=== PATIENT | female | born 1940 | race Caucasian/White ===

== ENCOUNTER 2020-10-17 10:12 | Inpatient (IN) | payer MEDICAID ==
[~2020-10-17] VITALS: Ht 152.4 cm; Wt 64.9 kg
[2020-10-17 11:26] LABS: BASOPHILS % 1.1 % (0.0-2.0); EOSINOPHILS % 3.7 % (0.0-5.0); HEMATOCRIT. 34.3 % (36.0-48.0); HEMOGLOBIN. 11.5 g/dL (12.0-16.0); LYMPHOCYTES % 28.3 % (20.0-50.0); MEAN CORPUSCULAR HEMOGLOBIN 31.1 pg (28.0-32.0); MEAN CORPUSCULAR VOLUME 92.8 fL (81.0-99.0); MEAN PLATELET VOLUME 8.1 fl (7.4-10.4); MONOCYTES % 9.5 % (2.0-8.0); NEUTROPHILS % 57.4 % (40.0-76.0); PLATELET 186 x1000/uL (130-400); RED CELL DISTRIBUTION WIDTH 16.3 % (11.6-14.6)
[2020-10-17 11:32] LABS: CHLORIDE 105 mEq/L (98-107)
[2020-10-17] MEDS ORDERED: FUROSEMIDE 40MG/4ML VIAL IVP NR (12:00)
[2020-10-17] MEDS ORDERED: ASPIRIN 81MG TABLET PO NR (12:00)
[2020-10-17] MEDS ORDERED: MAGNESIUM/ALUMINUM HYDROXIDE/SIMETHICONE 30ML UDC PO PRN (13:45)
[2020-10-17] MEDS ORDERED: GUAIFENESIN 200MG/10ML SUGAR FREE UDC PO PRN (13:45)
[2020-10-17] MEDS ORDERED: ONDANSETRON HCL 4MG/2ML INJ IV PRN (13:45)
[2020-10-17] MEDS ORDERED: ACETAMINOPHEN 325MG TABLET PO PRN (13:45)
[2020-10-17] MEDS ORDERED: HYDROMORPHONE HCL/PF 2MG/ML CPJ IV PRN (13:45)
[2020-10-17] MEDS ORDERED: DOCUSATE SODIUM 100MG CAPSULE PO PRN (13:45)
[2020-10-17] MEDS ORDERED: HYDROCODONE/ACETAMINOPHEN 5/325MG TABLET PO PRN (13:45)
[2020-10-17] MEDS ORDERED: LISINOPRIL 10MG TABLET PO SCH (13:45)
[2020-10-17] MEDS: ENOXAPARIN 40MG/0.4ML SYR SUBCUT SCH (16:21)
[2020-10-17 19:30] LABS: CLARITY URINE CLEAR (CLEAR); COLOR URINE YELLOW (YELLOW); KETONES URINE NEGATIVE (NEGATIVE); LEUKOCYTE ESTERASE URINE 1+ (NEGATIVE); NITRITE URINE POSITIVE (NEGATIVE); OCCULT BLOOD URINE TRACE (NEGATIVE); PROTEIN URINE NEGATIVE (NEGATIVE); SPECIFIC GRAVITY URINE 1.007 (1.005-1.030); UROBILINOGEN URINE 0.2 E.U./dL (0.2-1.0)
[2020-10-17 19:42] LABS: METHADONE URINE SCREEN NEGATIVE (NEGATIVE); OPIATES URINE SCREEN NEGATIVE (NEGATIVE); PHENCYCLIDINE URINE SCREEN NEGATIVE (NEGATIVE)
[2020-10-17 19:43] LABS: *AMPHETAMINES SCREEN URINE NEGATIVE (NEGATIVE); *BARBITURATES SCREEN URINE NEGATIVE (NEGATIVE); *BENZODIAZEPINES SCREEN URINE NEGATIVE (NEGATIVE); *COCAINE SCREEN URINE NEGATIVE (NEGATIVE); CANNABINOID URINE SCREEN NEGATIVE (NEGATIVE)
[2020-10-17 21:30] VITALS: BP 151/74
[2020-10-17] MEDS: HYDRALAZINE HCL 25MG TABLET PO SCH (22:42)
[2020-10-18] VITALS: BP 130/88
[2020-10-18 04:00] VITALS: BP 129/80
[2020-10-18 06:12] LABS: CHLORIDE 102 mEq/L (98-107)
[2020-10-18 06:23] LABS: LDL CHOLESTEROL 110 mg/dL (5-100)
[2020-10-18 06:25] LABS: HDL CHOLESTEROL 43 mg/dL (40-59); T4 FREE 1.46 ng/dL (0.76-1.46)
[2020-10-18 08:00] VITALS: BP 121/47
[2020-10-18 08:24] LABS: BASOPHILS % 1.2 % (0.0-2.0); EOSINOPHILS % 2.6 % (0.0-5.0); HEMATOCRIT. 39.7 % (36.0-48.0); HEMOGLOBIN. 13.5 g/dL (12.0-16.0); LYMPHOCYTES % 22.2 % (20.0-50.0); MEAN CORPUSCULAR HEMOGLOBIN 31.6 pg (28.0-32.0); MEAN CORPUSCULAR VOLUME 92.6 fL (81.0-99.0); MEAN PLATELET VOLUME 9.6 fl (7.4-10.4); MONOCYTES % 9.2 % (2.0-8.0); NEUTROPHILS % 64.8 % (40.0-76.0); PLATELET 191 x1000/uL (130-400); RED BLOOD CELL COUNT 4.28 mill/uL (4.2-5.4); RED CELL DISTRIBUTION WIDTH 16.1 % (11.6-14.6)
[2020-10-18] MEDS: ASPIRIN 81MG EC TABLET PO SCH (08:49)
[2020-10-18] MEDS: FUROSEMIDE 40MG/4ML VIAL IVP SCH (08:49)
[2020-10-18] MEDS ORDERED: LEVOFLOXACIN 500MG PREMIX 100 ML IV NR (11:00)
[2020-10-18 12:00] VITALS: BP 159/68
[2020-10-18] MEDS: HYDRALAZINE HCL 25MG TABLET PO SCH ×2 (13:45→21:12)
[2020-10-18] MEDS: ENOXAPARIN 40MG/0.4ML SYR SUBCUT SCH (15:54)
[2020-10-18 16:00] VITALS: BP 149/74
[2020-10-18] MEDS ORDERED: SULF500T4 PO (16:23)
[2020-10-18] MEDS ORDERED: CALC-3 MT (16:23)
[2020-10-18] MEDS ORDERED: MEMA5TAB42 MT (16:23)
[2020-10-18] MEDS ORDERED: AMLO10TA80 PO (16:23)
[2020-10-18] MEDS ORDERED: LABE100T5 MT (16:23)
[2020-10-18] MEDS ORDERED: ASPI-1497 MT (16:23)
[2020-10-18] MEDS ORDERED: DONE10TA36 PO (16:24)
[2020-10-18 20:00] VITALS: BP 97/59
[2020-10-18] MEDS: ATORVASTATIN CALCIUM 20MG TABLET PO SCH (21:12)
[2020-10-19] VITALS: BP 179/83
[2020-10-19] MEDS: HYDRALAZINE HCL 25MG TABLET PO SCH ×3 (05:04→21:17)
[2020-10-19 08:00] VITALS: BP 156/86
[2020-10-19] MEDS: FUROSEMIDE 40MG/4ML VIAL IVP SCH (08:28)
[2020-10-19] MEDS: ASPIRIN 81MG EC TABLET PO SCH (08:28)
[2020-10-19] MEDS ORDERED: DOXY100T28 PO (09:47)
[2020-10-19] MEDS: DEXT 5%/0.45% NACL 1000ML 1,000 ML IV SCH (11:12)
[2020-10-19] MEDS: LEVOFLOXACIN 250MG PREMIX 50 ML IV SCH (11:12)
[2020-10-19 12:00] VITALS: BP 149/76
[2020-10-19 16:00] VITALS: BP 123/90
[2020-10-19] MEDS: ENOXAPARIN 40MG/0.4ML SYR SUBCUT SCH (17:34)
[2020-10-19 20:00] VITALS: BP 159/89
[2020-10-19] MEDS: ATORVASTATIN CALCIUM 20MG TABLET PO SCH (21:17)
[2020-10-20] VITALS: BP 148/66
[2020-10-20] MEDS: DEXT 5%/0.45% NACL 1000ML 1,000 ML IV SCH ×2 (03:04→20:55)
[2020-10-20 04:00] VITALS: BP 145/60
[2020-10-20] MEDS: HYDRALAZINE HCL 25MG TABLET PO SCH ×3 (05:52→20:55)
[2020-10-20 08:00] VITALS: BP 134/66
[2020-10-20] MEDS: FUROSEMIDE 40MG/4ML VIAL IVP SCH (09:00)
[2020-10-20] MEDS: ASPIRIN 81MG EC TABLET PO SCH (09:11)
[2020-10-20] MEDS: LEVOFLOXACIN 250MG PREMIX 50 ML IV SCH (11:00)
[2020-10-20 11:50] LABS: BASOPHILS % 0.3 % (0.0-2.0); EOSINOPHILS % 0.3 % (0.0-5.0); HEMOGLOBIN. 14.6 g/dL (12.0-16.0); LYMPHOCYTES % 15.7 % (20.0-50.0); MEAN CORPUSCULAR HEMOGLOBIN 32.1 pg (28.0-32.0); MEAN CORPUSCULAR VOLUME 92.3 fL (81.0-99.0); MEAN PLATELET VOLUME 8.6 fl (7.4-10.4); MONOCYTES % 14.6 % (2.0-8.0); NEUTROPHILS % 69.1 % (40.0-76.0); PLATELET 210 x1000/uL (130-400); RED BLOOD CELL COUNT 4.55 mill/uL (4.2-5.4); RED CELL DISTRIBUTION WIDTH 16.1 % (11.6-14.6)
[2020-10-20 12:00] VITALS: BP 117/58
[2020-10-20 12:56] LABS: CHLORIDE 100 mEq/L (98-107)
[2020-10-20] MEDS ORDERED: LIDOCAINE HCL 1% 20ML VIAL (Pyxis) INJ ONE (13:27)
[2020-10-20 16:00] VITALS: BP 152/77
[2020-10-20] MEDS: METOPROLOL TARTRATE 25MG TABLET PO SCH ×2 (16:59→20:54)
[2020-10-20] MEDS: ENOXAPARIN 40MG/0.4ML SYR SUBCUT SCH (16:59)
[2020-10-20] MEDS ORDERED: POTASSIUM CHLORIDE INJ 40 MEQ in DEXT 5% WATER 250 ML IV NR (17:00)
[2020-10-20 20:00] VITALS: BP 134/84
[2020-10-20] MEDS: ATORVASTATIN CALCIUM 20MG TABLET PO SCH (20:52)
[2020-10-21] VITALS (7 sets, daily range): BP systolic 100–138; BP diastolic 44–66
[2020-10-21 06:07] LABS: CHLORIDE 101 mEq/L (98-107)
[2020-10-21 06:15] LABS: BASOPHILS % 0.3 % (0.0-2.0); EOSINOPHILS % 0.1 % (0.0-5.0); HEMATOCRIT. 41.1 % (36.0-48.0); HEMOGLOBIN. 13.9 g/dL (12.0-16.0); LYMPHOCYTES % 18.7 % (20.0-50.0); MEAN CORPUSCULAR HEMOGLOBIN 31.3 pg (28.0-32.0); MEAN CORPUSCULAR VOLUME 92.8 fL (81.0-99.0); MEAN PLATELET VOLUME 9.2 fl (7.4-10.4); MONOCYTES % 13.5 % (2.0-8.0); NEUTROPHILS % 67.4 % (40.0-76.0); PLATELET 216 x1000/uL (130-400); RED BLOOD CELL COUNT 4.43 mill/uL (4.2-5.4); RED CELL DISTRIBUTION WIDTH 16.5 % (11.6-14.6)
[2020-10-21] MEDS: HYDRALAZINE HCL 25MG TABLET PO SCH ×3 (06:23→20:39)
[2020-10-21] MEDS: ASPIRIN 81MG EC TABLET PO SCH (08:40)
[2020-10-21] MEDS ORDERED: METOPROLOL TARTRATE 50MG TABLET PO SCH (09:00)
[2020-10-21] MEDS: DEXT 5%/0.45% NACL 1000ML 1,000 ML IV SCH (10:11)
[2020-10-21] MEDS: LEVOFLOXACIN 250MG PREMIX 50 ML IV SCH (10:11)
[2020-10-21] MEDS ORDERED: MAGNESIUM 1 G PREMIX 100 ML IV NR (15:30)
[2020-10-21] MEDS: ATORVASTATIN CALCIUM 20MG TABLET PO SCH (20:38)
[2020-10-22] VITALS (88 sets, daily range): BP systolic 51–172; BP diastolic 37–115
[2020-10-22] MEDS: DOPAMINE 400MG/250ML PREMIX 250 ML IV PRN (01:20)
[2020-10-22 05:34] LABS: BASOPHILS % 0.4 % (0.0-2.0); EOSINOPHILS % 0.3 % (0.0-5.0); HEMATOCRIT. 38.7 % (36.0-48.0); HEMOGLOBIN. 12.8 g/dL (12.0-16.0); LYMPHOCYTES % 21.3 % (20.0-50.0); MEAN CORPUSCULAR HEMOGLOBIN 30.6 pg (28.0-32.0); MEAN CORPUSCULAR VOLUME 92.5 fL (81.0-99.0); MEAN PLATELET VOLUME 8.9 fl (7.4-10.4); MONOCYTES % 11.2 % (2.0-8.0); NEUTROPHILS % 66.8 % (40.0-76.0); PLATELET 191 x1000/uL (130-400); RED BLOOD CELL COUNT 4.19 mill/uL (4.2-5.4); RED CELL DISTRIBUTION WIDTH 16.4 % (11.6-14.6)
[2020-10-22 05:40] LABS: INR 1.1; PROTHROMBIN TIME 11.8 sec (9.6-11.0)
[2020-10-22] MEDS: HYDRALAZINE HCL 25MG TABLET PO SCH (06:00)
[2020-10-22] MEDS: DEXT 5%/0.45% NACL 1000ML 1,000 ML IV SCH (06:05)
[2020-10-22 06:39] LABS: HEPATITIS B SURFACE ANTIGEN NEGATIVE
[2020-10-22 07:09] LABS: HEPATITIS A AB IGM NEGATIVE (NEGATIVE)
[2020-10-22] MEDS: ASPIRIN 81MG EC TABLET PO SCH ×2 (09:00→09:01)
[2020-10-22] MEDS: PANTOPRAZOLE SODIUM 40 MG/VIAL IV SCH (09:01)
[2020-10-22] MEDS ORDERED: KCL 20MEQ/100ML PREMIX 100 ML IV NR (09:15)
[2020-10-22] MEDS ORDERED: CEFAZOLIN 1000MG PREMIX 50 ML IV SCH (10:30)
[2020-10-22] MEDS ORDERED: SODIUM CHLORIDE 0.45% 1,000 ML IV NR (10:30)
[2020-10-22] MEDS: HYDRALAZINE 20MG/ML VIAL IV SCH ×2 (12:00→17:54)
[2020-10-22] MEDS: LEVOFLOXACIN 250MG PREMIX 50 ML IV SCH (12:05)
[2020-10-22] MEDS ORDERED: SODIUM CHLORIDE 0.9% 1,000 ML IV SCH (14:15)
[2020-10-22] MEDS: DEXT 5%/0.9% NACL 1,000 ML IV SCH (15:41)
[2020-10-22] MEDS: ENOXAPARIN 30MG/0.3ML SYR SUBCUT SCH (16:35)
[2020-10-22] MEDS: ATORVASTATIN CALCIUM 20MG TABLET PO SCH (21:00)
[2020-10-23] VITALS (87 sets, daily range): BP systolic 106–155; BP diastolic 39–95
[2020-10-23] MEDS: DOPAMINE 400MG/250ML PREMIX 250 ML IV PRN (01:32)
[2020-10-23] MEDS: DEXT 5%/0.9% NACL 1,000 ML IV SCH ×2 (04:50→15:24)
[2020-10-23 05:38] LABS: BASOPHILS % 0.3 % (0.0-2.0); EOSINOPHILS % 0.9 % (0.0-5.0); HEMATOCRIT. 35.8 % (36.0-48.0); HEMOGLOBIN. 11.7 g/dL (12.0-16.0); LYMPHOCYTES % 21.4 % (20.0-50.0); MEAN CORPUSCULAR HEMOGLOBIN 30.3 pg (28.0-32.0); MEAN CORPUSCULAR VOLUME 92.3 fL (81.0-99.0); MEAN PLATELET VOLUME 9.1 fl (7.4-10.4); MONOCYTES % 13.1 % (2.0-8.0); NEUTROPHILS % 64.3 % (40.0-76.0); PLATELET 194 x1000/uL (130-400); RED BLOOD CELL COUNT 3.88 mill/uL (4.2-5.4); RED CELL DISTRIBUTION WIDTH 16.4 % (11.6-14.6)
[2020-10-23 05:42] LABS: CHLORIDE 104 mEq/L (98-107)
[2020-10-23] MEDS: HYDRALAZINE 20MG/ML VIAL IV SCH ×4 (06:00→17:34)
[2020-10-23] MEDS ORDERED: KCL 20MEQ/100ML PREMIX 100 ML IV SCH (09:00)
[2020-10-23] MEDS: PANTOPRAZOLE SODIUM 40 MG/VIAL IV SCH (09:01)
[2020-10-23] MEDS ORDERED: KCL 20MEQ/100ML PREMIX 100 ML IV NR (11:30)
[2020-10-23] MEDS: ATORVASTATIN CALCIUM 20MG TABLET PO SCH (21:00)
[2020-10-24] VITALS (106 sets, daily range): BP systolic 77–179; BP diastolic 24–126
[2020-10-24] MEDS: DEXT 5%/0.9% NACL 1,000 ML IV SCH ×2 (04:09→20:29)
[2020-10-24 05:26] LABS: BASOPHILS % 0.4 % (0.0-2.0); EOSINOPHILS % 1.8 % (0.0-5.0); HEMATOCRIT. 38.9 % (36.0-48.0); HEMOGLOBIN. 12.8 g/dL (12.0-16.0); LYMPHOCYTES % 25.2 % (20.0-50.0); MEAN CORPUSCULAR HEMOGLOBIN 30.2 pg (28.0-32.0); MEAN PLATELET VOLUME 8.5 fl (7.4-10.4); MONOCYTES % 11.4 % (2.0-8.0); NEUTROPHILS % 61.2 % (40.0-76.0); PLATELET 192 x1000/uL (130-400); RED BLOOD CELL COUNT 4.23 mill/uL (4.2-5.4); RED CELL DISTRIBUTION WIDTH 16.3 % (11.6-14.6)
[2020-10-24 05:29] LABS: CHLORIDE 110 mEq/L (98-107)
[2020-10-24] MEDS: HYDRALAZINE 20MG/ML VIAL IV SCH ×4 (05:40→17:02)
[2020-10-24 05:59] LABS: INR 1.2; PROTHROMBIN TIME 12.5 sec (9.6-11.0)
[2020-10-24] MEDS: PANTOPRAZOLE SODIUM 40 MG/VIAL IV SCH (09:19)
[2020-10-24] MEDS ORDERED: CEFAZOLIN 1000MG PREMIX 50 ML IV ONE (11:30)
[2020-10-24] MEDS ORDERED: FENTANYL CITRATE/PF 50MCG/ML 2ML VIAL ONE (15:17)
[2020-10-24] MEDS ORDERED: FENTANYL CITRATE/PF 50MCG/ML 2ML VIAL IV PRN (15:17)
[2020-10-24] MEDS ORDERED: MIDAZOLAM HCL 5 MG/5 ML VIAL IV PRN (15:17)
[2020-10-24] MEDS ORDERED: MIDAZOLAM HCL 5 MG/5 ML VIAL ONE (15:17)
[2020-10-24] MEDS: ATORVASTATIN CALCIUM 20MG TABLET PO SCH (20:28)
[2020-10-25] VITALS (55 sets, daily range): BP systolic 113–172; BP diastolic 37–113
[2020-10-25] MEDS: HYDRALAZINE 20MG/ML VIAL IV SCH ×4 (00:55→18:02)
[2020-10-25 05:31] LABS: BASOPHILS % 0.2 % (0.0-2.0); EOSINOPHILS % 0.4 % (0.0-5.0); HEMATOCRIT. 38.6 % (36.0-48.0); HEMOGLOBIN. 12.8 g/dL (12.0-16.0); LYMPHOCYTES % 12.2 % (20.0-50.0); MEAN CORPUSCULAR HEMOGLOBIN 30.8 pg (28.0-32.0); MEAN CORPUSCULAR VOLUME 92.9 fL (81.0-99.0); MEAN PLATELET VOLUME 8.4 fl (7.4-10.4); MONOCYTES % 9.3 % (2.0-8.0); NEUTROPHILS % 77.9 % (40.0-76.0); PLATELET 194 x1000/uL (130-400); RED BLOOD CELL COUNT 4.16 mill/uL (4.2-5.4); RED CELL DISTRIBUTION WIDTH 16.2 % (11.6-14.6)
[2020-10-25 05:38] LABS: CHLORIDE 114 mEq/L (98-107)
[2020-10-25] MEDS: METOCLOPRAMIDE HCL 10MG/2ML VIAL IV SCH ×3 (06:09→18:02)
[2020-10-25] MEDS: PANTOPRAZOLE SODIUM 40 MG/VIAL IV SCH (08:26)
[2020-10-25] MEDS: DEXT 5%/0.9% NACL 1,000 ML IV SCH (09:45)
[2020-10-25] MEDS ORDERED: KCL 20MEQ/100ML PREMIX 100 ML IV NR (10:00)
[2020-10-25] MEDS ORDERED: DOCUSATE SODIUM 100MG CAPSULE PEG PRN (14:00)
[2020-10-25] MEDS ORDERED: DOCUSATE SODIUM SUGAR FREE 100MG/10ML UDC PEG PRN (14:00)
[2020-10-25] MEDS: ATORVASTATIN CALCIUM 20MG TABLET PO SCH (21:06)
[2020-10-26] MEDS: METOCLOPRAMIDE HCL 10MG/2ML VIAL IV SCH ×4 (00:29→17:33)
[2020-10-26] MEDS: HYDRALAZINE 20MG/ML VIAL IV SCH ×4 (00:29→17:28)
[2020-10-26 00:30] VITALS: BP 114/71
[2020-10-26 04:00] VITALS: BP 134/46
[2020-10-26 08:00] VITALS: BP 135/54
[2020-10-26] MEDS: MULTIVITAMINS,THER W-MINERALS TABLET PO SCH (09:57)
[2020-10-26] MEDS: ASCORBIC ACID 500 MG TABLET PO SCH (09:58)
[2020-10-26] MEDS: ZINC SULFATE 220 MG ( 50 ) CAPSULE PO SCH (09:58)
[2020-10-26] MEDS: FOLIC ACID 1MG TABLET PEG SCH (09:58)
[2020-10-26] MEDS: PANTOPRAZOLE SODIUM 40 MG/VIAL IV SCH (10:01)
[2020-10-26] MEDS: THIAMINE HCL 100MG TABLET PEG SCH (10:01)
[2020-10-26 12:00] VITALS: BP 117/84
[2020-10-26 16:00] VITALS: BP 115/50
[2020-10-26 20:00] VITALS: BP 179/88
[2020-10-26] MEDS: ATORVASTATIN CALCIUM 20MG TABLET PO SCH (20:59)
[2020-10-27] MEDS: METOCLOPRAMIDE HCL 10MG/2ML VIAL IV SCH
[2020-10-27 00:40] VITALS: BP 154/71
[2020-10-27] MEDS: HYDRALAZINE 20MG/ML VIAL IV SCH ×2 (01:21→06:47)
[2020-10-27 04:00] VITALS: BP 165/69
[2020-10-27 08:00] VITALS: BP 132/80
[2020-10-27] MEDS ORDERED: FAMOTIDINE 20MG/2ML VIAL IV SCH (09:00)
[2020-10-27] MEDS: FOLIC ACID 1MG TABLET PEG SCH (09:07)
[2020-10-27] MEDS: THIAMINE HCL 100MG TABLET PEG SCH (09:08)
[2020-10-27] MEDS: ZINC SULFATE 220 MG ( 50 ) CAPSULE PO SCH (09:08)
[2020-10-27] MEDS: MULTIVITAMINS,THER W-MINERALS TABLET PO SCH (09:08)
[2020-10-27] MEDS: ASCORBIC ACID 500 MG TABLET PO SCH (09:08)
[2020-10-27] MEDS ORDERED: HYDRALAZINE HCL 25MG TABLET PO SCH ×2 (10:00→14:00)
[2020-10-27] MEDS ORDERED: HYDRALAZINE 20MG/ML VIAL IV PRN (10:00)
[2020-10-27] MEDS ORDERED: POTASSIUM CHLORIDE INJ 40 MEQ in DEXT 5% WATER 250 ML IV NR (11:00)
[2020-10-27 12:00] VITALS: BP 152/74
[2020-10-27 16:08] VITALS: BP 94/44
[2020-10-27] MEDS: ENOXAPARIN 30MG/0.3ML SYR SUBCUT SCH (16:44)
[2020-10-27 17:12] VITALS: BP 106/52
== END 2020-10-27 17:45 | disposition home or self-care (01) | DRG 201 ==
LOC: ER 10:12 → 8WST 12:55 → ENRESERV 18:11 → CVICU 10-22 00:56 → 6WST 10-25 19:55
PROVIDERS: ADMIT Hospitalist; ATTEND Hospitalist
PROC: 02HV33Z Insertion of Infusion Device into Superior Vena Cava, Percutaneous Approach (ICD-10-PCS; 2020-10-20)
PROC: B518ZZA Fluoroscopy of Superior Vena Cava, Guidance (ICD-10-PCS; 2020-10-20)
PROC: B548ZZA Ultrasonography of Superior Vena Cava, Guidance (ICD-10-PCS; 2020-10-20)
PROC: 0DH63UZ Insertion of Feeding Device into Stomach, Percutaneous Approach (ICD-10-PCS; principal; 2020-10-24)
PROC: 0DB78ZX Excision of Stomach, Pylorus, Via Natural or Artificial Opening Endoscopic, Diagnostic (ICD-10-PCS; 2020-10-24)
DX: I49.5 Sick sinus syndrome (principal); N17.9 Acute kidney failure, unspecified; L89.156 Pressure-induced deep tissue damage of sacral region; E46 Unspecified protein-calorie malnutrition; E88.09 Other disorders of plasma-protein metabolism, not elsewhere classified; I11.0 Hypertensive heart disease with heart failure; R13.12 Dysphagia, oropharyngeal phase; I50.40 Unspecified combined systolic (congestive) and diastolic (congestive) heart failure; M94.0 Chondrocostal junction syndrome [Tietze]; I48.0 Paroxysmal atrial fibrillation; F03.90 Unspecified dementia, unspecified severity, without behavioral disturbance, psychotic disturbance, mood disturbance, and anxiety; N39.0 Urinary tract infection, site not specified; J98.11 Atelectasis; D64.9 Anemia, unspecified; K29.70 Gastritis, unspecified, without bleeding; M19.90 Unspecified osteoarthritis, unspecified site; Z20.822 Contact with and (suspected) exposure to COVID-19; R74.01 Elevation of levels of liver transaminase levels; E80.6 Other disorders of bilirubin metabolism; Z86.73 Personal history of transient ischemic attack (TIA), and cerebral infarction without residual deficits; Z68.27 Body mass index [BMI] 27.0-27.9, adult; R62.7 Adult failure to thrive
CPT/HCPCS: 36415; 36573; 71045; 80048; 80053; 80061; 80305; 81003; 82247; 82248; 83735; 83880; 84134; 84439; 84443; 84450; 84484; 85025; 86705; 86709; 86803; 87077; 87186; 87340; 87426; 88305; 88312; 88313; 93005; 93306; 93970; 99285; A6261; C1725; C1769; C1893; C9113; J0360; J0690; J1170; J1265; J1650; J1940; J1956; J2250; J2765; J3010; J3475; J3480; J3490; J7040; J7042; J7060; A4315